=== PATIENT | female | born 1940 | race Caucasian/White ===

== ENCOUNTER → 2018-02-15 | Outpatient (CLI) | payer MEDICARE, BC ==
--- NOTE | 2018-02-15 11:33 | EKG ---
[place] [address] ELECTROCARDIOGRAM REPORT Name: ALEXIS MAN Room: [facility]#: [id number] Admission: 02/15/18 Attend Phys: Girish Johnson MD Discharge: Date of : 44 Report #: [id number] THIS REPORT FOR: //name// [facility] Test Date: 2018-02-15 Test Time: 11:22:08 Pat Name: ALEXIS MAN Department: Room: Gender: F [employer]: : 1940 Requested By: Girish Johnson Order Number: [id number] Reading MD: Maverick Nevarez Measurements Intervals [place] Rate: 70 P: 52 CT: 161 QRS: -15 QRSD: 85 T: 45 QT: 401 QTc: 433 Interpretive Statements Sinus rhythm Borderline left axis deviation Compared to ECG 07/11/2017 14:20:00 No significant changes Electronically Signed On 02-15-2018 11:33:20 CDT by Maverick Nevarez [email or web address] <ELECTRONICALLY SIGNED> By: Maverick Nevarez MD, [facility] 02/15/18 1133 112 112 Maverick Nevarez MD, [facility] /EPI
== END ==
LOC: M.CRD 11:04
DX: Z01.812 Encounter for preprocedural laboratory examination (principal)